=== PATIENT | male | born 1950 | race Caucasian/White ===

== ENCOUNTER 2020-10-29 19:28 | Observation (INO) | payer OTHER ==
[~2020-10-29] VITALS: Ht 182.9 cm; Wt 99.8 kg
[2020-10-29 19:36] VITALS: BP 183/96
[2020-10-29] MEDS ORDERED: LISINOPRIL20 MG PO (19:46)
[2020-10-29] MEDS ORDERED: ASA81BEC PO (19:47)
[2020-10-29 20:14] LABS: ABSOLUTE EOSINOPHILS 0.1 thou/uL (0.0-0.7); ABSOLUTE LYMPHOCYTES 1.1 thou/uL (0.8-5.3); ABSOLUTE MONOCYTES 1.4 thou/uL (0.0-1.2); ABSOLUTE NEUTROPHILS 6.2 thou/uL (1.6-8.1); BASOPHILS 0.2 %; EOSINOPHILS 0.8 %; HEMATOCRIT 41.5 % (42.0-52.0); HEMOGLOBIN 14.5 gm/dL (14.0-18.0); LYMPHOCYTES 12.3 %; MCH 33.2 pg (26.0-34.0); MCHC 34.9 g/dL (28.0-37.0); MONOCYTES 15.6 %; MPV 7.6 fl. (7.2-11.1); NUCLEATED RBCS 0 /100WBC; PLATELET COUNT* 151 thou/uL (150-400); POLYS 71.1 %; RBC 4.37 mil/uL (4.50-6.00); RDW-CV 13.2 % (10.5-14.5); WBC 8.8 thou/uL (4.0-11.0)
[2020-10-29 20:23] LABS: CALCIUM 8.7 mg/dL (8.5-10.1); CREATININE 1.2 mg/dL (0.6-1.3); POTASSIUM 4.2 mmol/L (3.5-5.1)
[2020-10-29 20:29] LABS: URINE BILIRUBIN NEGATIVE (Negative); URINE BLOOD NEGATIVE (Negative); URINE CLARITY CLEAR; URINE COLOR YELLOW; URINE GLUCOSE-RANDOM NEGATIVE (Negative); URINE KETONES NEGATIVE (Negative); URINE LEUKOCYTES-REFLEX NEGATIVE (Negative); URINE NITRITE-REFLEX NEGATIVE (Negative); URINE PROTEIN NEGATIVE (Negative); URINE SPECIFIC GRAVITY >= 1.030 (1.005-1.030); URINE UROBILINOGEN 0.2 E.U./dl (0.2-1.0)
[2020-10-29 20:33] LABS: ALBUMIN 3.3 g/dL (3.4-5.0); MAGNESIUM 1.8 mg/dL (1.8-2.4); TOTAL BILIRUBIN 0.7 mg/dL (<0.1-1.0); TOTAL PROTEIN 7.5 g/dL (6.4-8.2)
[2020-10-30] VITALS (7 sets, daily range): BP systolic 109–149; BP diastolic 54–83
--- NOTE | 2020-10-30 05:09 | NUR ---
REPORT RECIEVED FROM ER. PT ORIENTED TO ROOM, CALL LIGHT SHOWN, FALL AGREEMENT WENT OVER, PT STATED UNDERSTANDING. NEW IV STARTED, FLUIDS INFUSING. ADMISSION DOCUMENTED. WILL CONTINUE WITH PLAN OF CARE.
--- NOTE | 2020-10-30 05:11 | NUR ---
PT SLEPT MOST OF SHIFT. ASSESSMENT DOCUMENTED. MEDS GIVEN PER E-JUL. IV PATENT. NO REPORTS OF PAIN. CATH SITE REMAINED C/D/I. PT ABLE TO MAKE NEEDS KNOWN. WILL CONTINUE WITH PLAN OF CARE.
[2020-10-30 09:08] LABS: ABSOLUTE MONOCYTES 0.9 thou/uL (0.0-1.2); ABSOLUTE NEUTROPHILS 5.9 thou/uL (1.6-8.1); BASOPHILS 0.1 %; EOSINOPHILS 0.3 %; HEMATOCRIT 39.6 % (42.0-52.0); HEMOGLOBIN 13.6 gm/dL (14.0-18.0); LYMPHOCYTES 12.5 %; MCH 32.8 pg (26.0-34.0); MCHC 34.4 g/dL (28.0-37.0); MCV 95.1 fL (80.0-100.0); MONOCYTES 11.8 %; MPV 7.7 fl. (7.2-11.1); NUCLEATED RBCS 0 /100WBC; PLATELET COUNT* 143 thou/uL (150-400); POLYS 75.3 %; RBC 4.16 mil/uL (4.50-6.00); RDW-CV 12.7 % (10.5-14.5); WBC 7.8 thou/uL (4.0-11.0)
[2020-10-30 09:34] LABS: ANION GAP 8 mmol/L (7-16); BUN 13 mg/dL (7-18); CALCIUM 7.9 mg/dL (8.5-10.1); CHLORIDE 105 mmol/L (98-107); CO2 24 mmol/L (21-32); CREATININE 0.9 mg/dL (0.6-1.3); GLUCOSE 115 mg/dL (70-99); POTASSIUM 3.9 mmol/L (3.5-5.1); SERUM ASSESSMENT Clear; SODIUM 137 mmol/L (136-145)
[2020-10-30 09:45] LABS: CHOLESTEROL 172 mg/dL (<200); HDL CHOLESTEROL 42 mg/dL (>40); LDL CHOLESTEROL 114 mg/dL (<100); TC:HDL 4.1 Ratio (Not establshd); TRIGLYCERIDE 80 mg/dL (<150); VLDL 16 mg/dL (<40)
--- NOTE | 2020-10-30 10:32 | EKG ---
[place] [address] ELECTROCARDIOGRAM REPORT Name: AMARA SCHUMACHER JR Room: [address]R.#: [id number] Admission: 10/29/20 Attend Phys: Wilmer Stanley Discharge: Date of : 46 Date of Service: 10/29/201936 Report #: [id number] THIS REPORT FOR: //name// [facility] ED Test Date: 2020-10-29 Test Time: 19:37:50 Pat Name: AMARA SCHUMACHER Department: Room: [facility] Gender: M Masticator: [place] : 1950 Requested By: Leanne Gaviria Order Number: [id number] MD: Jung Otto Measurements Intervals [place] Rate: 90 P: 28 WV: 169 QRS: 4 QRSD: 97 T: 12 QT: 356 QTc: 436 Interpretive Statements Sinus rhythm nonspecific st segment changes No previous ECG available for comparison Electronically Signed On 10-30-2020 10:31:49 CDT by Jung Otto [email or web address] <ELECTRONICALLY SIGNED> By: Jung Otto MD, [facility] 10/30/20 1031 36 36 Jung Otto MD, [facility] /EPI
--- NOTE | 2020-10-30 12:51 | NUR ---
cm s/w pt and his , who was at bedside. 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 pt is active and independent and has no dmes and is not believed to have any cm needs at this time.
--- NOTE | 2020-10-30 17:51 | NUR ---
Pt reports pain to Rt side of chest/back has "decreased as the day has gone on." Remains on IVF and IV abx. States he is hopeful of being discharged soon. VSS. Will continue to monitor.
[2020-10-31 00:26] VITALS: BP 137/65
[2020-10-31 04:30] LABS: HEMATOCRIT 38.6 % (42.0-52.0); HEMOGLOBIN 13.1 gm/dL (14.0-18.0); MCH 32.8 pg (26.0-34.0); MCV 96.5 fL (80.0-100.0); MPV 7.4 fl. (7.2-11.1); RDW-CV 13.1 % (10.5-14.5); WBC 7.5 thou/uL (4.0-11.0)
[2020-10-31 04:39] LABS: CALCIUM 8.3 mg/dL (8.5-10.1); POTASSIUM 4.4 mmol/L (3.5-5.1)
[2020-10-31 05:36] VITALS: BP 134/54
[2020-10-31 08:23] VITALS: BP 139/58
--- NOTE | 2020-10-31 10:08 | NUR ---
ASSUMED CARE OF PT THIS AM AROUND 0715- INVERTED BLOCK OPERATOR IN PLACE ORDERED, TRACING SR- UPON ASSESSMENT PT NOTED TO BE RESTING IN BED- PT A&O X4- CONT OF B/B- UP AD-ROBERTA, STEADY GAIT NOTED- LCTA, RESP EVEN AND UN-LABROED- VSS, O2 SAT 92% ON RA-ABD SOFT/ROUND/NON-TENDER, BS X4 QUADS- LAST BM REPORTED REPORTED 10/30/20- IV NOTED TO LEFT HAND INTACT, IVF AND IV ABT INFUSSING PRESCRIBED-GOOD PO INTAKE NOTED THIS AM WITH BREAKFAST- PT DENIES ANY C/O PAIN/DISCOMFORT AT THIS TIME- CALL LIGHT AND PERSONAL BELONGINGS WITH IN REACH- ALL NEEDS MET AT THIS TIME
[2020-10-31 10:56] VITALS: BP 139/58
[2020-10-31 12:00] VITALS: BP 143/78
[2020-10-31] MEDS ORDERED: LIPITOR 40 MG T40 M1 PO (14:54)
[2020-10-31] MEDS ORDERED: ELIQUIS5 M1 PO (14:59)
[2020-10-31] MEDS ORDERED: LEVOFLOXACIN500 MG PO (14:59)
--- NOTE | 2020-10-31 15:03 | NUR ---
Plan dc home with no needs
[2020-10-31 15:25] VITALS: BP 139/58
== END 2020-10-31 15:25 | disposition home or self-care (01) ==
LOC: M.ERS 19:28 → M.TBA-ER 23:53 → M.2W 23:53
PROVIDERS: Personal Emergency Response Attendant; ADMIT Internal Medicine; ATTEND Internal Medicine
DX: J18.9 Pneumonia, unspecified organism (principal); Z20.822 Contact with and (suspected) exposure to COVID-19; J90 Pleural effusion, not elsewhere classified; I25.10 Atherosclerotic heart disease of native coronary artery without angina pectoris; M54.9 Dorsalgia, unspecified; I10 Essential (primary) hypertension; E78.5 Hyperlipidemia, unspecified; Z86.718 Personal history of other venous thrombosis and embolism; Z79.899 Other long term (current) drug therapy